=== PATIENT | female | born 1965 | race Caucasian/White ===

== ENCOUNTER → 2016-04-30 | Day surgery (SDC) | payer BC ==
[~2016-04-30] MED LIST: ALPRAZOLAM PO; ASPERDRINK81 MG PO; BENAZEPRIL HCL10 MG PO; BUMETANIDE2 M1 PO; CELEBREX PO; CLONIDINE HCL0.1 MG PO; IBUPROFEN800 MG PO; JANUMET XR 50-1 EAC1 PO; KOMBIGLYZE XR1 EAC1 PO; LOW DOSE ASPIRI81 M1 PO; METFORMIN PO; NEURONTIN100 MG PO; OXAYDO7.5 MG PO; OXECTA7.5 MG PO; PERCOCET 5-3251 TAB PO; PERCOCET 7.5-31 EACH PO; PHENERGAN PO; PREMARIN1.25 MG PO; PRISTIQ50 MG PO; ROSUVASTATIN CA20 MG PO; SILVADENE TOP; VASCEPA1 GM PO; VICODIN 5/500 T1 TAB PO; VIVELLE-DO1 PATCH.B1 TD; WELLBUTRIN PO; ZANTAC150 M1 PO; ZOCOR PO; [UNRECOGNIZED DRUG - OTHER] PO
--- NOTE | ~2016-04-30 | OR ---
Unit #: [id number] #: [id number] Patient: DARCIE GALLO [id number] [address] [address] [id number] O MR#: [id number] NAME: DARCIE GALLO ROOM: Date of Procedure: 04/30/2016 Admission Date: 04/30/2016 Surgeon: Morgan Sosa M.D. : 1965 Attending Physician: Morgan Sosa M.D. Referring Physician: Morgan Sosa M.D. Primary Care Physician: Jonnathan JolleyPColleenRRadha OPERATIVE REPORT PREOPERATIVE DIAGNOSES 1. Back pain. 2. Radiculopathy. 3. Spondylolisthesis. 4. Degenerative disk disease. POSTOPERATIVE DIAGNOSES 1. Back pain. 2. Radiculopathy. 3. Spondylolisthesis. 4. Degenerative disk disease. PROCEDURE PERFORMED Lumbar epidural steroid injection with intravenous sedation and fluoroscopic guidance for needle localization. INDICATIONS FOR PROCEDURE The patient is 51-year-old female with return of back and right lower extremity pain due to nonsurgical degenerative disk disease and spondylolisthesis. She is treated medically with p.r.n. epidural steroid injections. Last injection was done 8 months ago. The patient did well for 7 months. Over the last month, she had return of the same symptoms. Based on history, pathology, and symptomatology, plan is to repeat an epidural steroid injection today. DESCRIPTION OF PROCEDURE The patient was placed in a seated position. Standard monitors were applied. 2 mg of Versed were given for sedation and anxiolysis, which were adequate. Vital signs remained stable. Sterile prep and drape then of the lumbar area was performed. The skin at the L4-L5 level was localized with 1% lidocaine. An 18-gauge [employer] needle was then advanced via loss of resistance technique and fluoroscopic guidance in toward the epidural space. After confirming proper positioning with fluoroscopy and radiographic contrast, 80 mg Depo-Medrol and 4 mL of 0.125% bupivacaine were deposited. The patient tolerated the procedure well and was discharged to the recovery room in stable condition. Dictated by... Morgan Sosa M.D. Unit #: [id number] #: [id number] Patient: DARCIE GALLO LHP/modl TD: 04/30/2016 23:18 JOB #: [id number] OPERATIVE REPORT Page 1 of 1 X Morgan Sosa MD X PROCEDURE OPERATIVE NOTE
== END | disposition home or self-care (01) ==
LOC: CCSC 07:10
DX: M51.16 Intervertebral disc disorders with radiculopathy, lumbar region (principal); M43.16 Spondylolisthesis, lumbar region; I10 Essential (primary) hypertension; F41.9 Anxiety disorder, unspecified
CPT/HCPCS: J1040; J2250

== ENCOUNTER → 2016-05-07 | Day surgery (SDC) | payer BC ==
--- NOTE | ~2016-05-07 | OR ---
Unit #: [id number] #: [id number] Patient: DARCIE GALLO [id number] [address] [place], [place] [address] [id number] O MR#: [id number] NAME: DARCIE GALLO. ROOM: Date of Procedure: 05/07/2016 Admission Date: 05/07/2016 Surgeon: Morgan Sosa M.D. : 1965 Attending Physician: Morgan Sosa M.D. Primary Care Physician: Luana Quezada A.P.R.N. OPERATIVE REPORT PREOPERATIVE DIAGNOSES 1. Back pain. 2. Radiculopathy. 3. Spondylolisthesis. 4. Degenerative disk disease. POSTOPERATIVE DIAGNOSES 1. Back pain. 2. Radiculopathy. 3. Spondylolisthesis. 4. Degenerative disk disease. PROCEDURE PERFORMED Lumbar epidural steroid injection with intravenous sedation and fluoroscopic guidance for needle localization. INDICATIONS FOR PROCEDURE The patient is a 51-year-old female, who had return of back and right lower extremity pain due to previously mentioned diagnosis. She has done very well with medical management in the past with epidural steroids. Last injections were completed about a year and a half ago. She did well for over a year. In the past, she feels she had done even better with a series of injections. There is a history of repeat injection was performed recently, which resulted in significant improvement in her back and leg pain I get back above she has previously been health in chief improving with the plan is to repeat a second injection today. The patient will then assess how she is doing and continue with the third injection. We will continue with other conservative management. DESCRIPTION OF PROCEDURE The patient was placed in a seated position. Standard monitors were applied. 2 mg of Versed were given for sedation and anxiolysis, which were adequate. Vital signs remained stable. Sterile prep and drape then of the lumbar area was performed. The skin at the L4-L5 level was localized with 1% lidocaine. An 18-gauge [employer] needle was then advanced via loss of resistance technique and fluoroscopic guidance in toward the epidural space. The patient did not complain of pain or paresthesia during needle advancement. After confirming proper positioning with fluoroscopy and radiographic contrast, 80 mg of Depo-Medrol and 4 mL of 0.125% bupivacaine were deposited. The patient tolerated the procedure otherwise well and was discharged to the recovery room in stable condition. Unit #: [id number] #: [id number] Patient: CLEODARCIE D Dictated by... Apollo Galvez/lluvia TD: 05/07/2016 23:59 JOB #: [id number] OPERATIVE REPORT Page 1 of 1 X Morgan Sosa MD X PROCEDURE OPERATIVE NOTE
== END | disposition home or self-care (01) ==
LOC: CCSC 07:10
DX: M51.16 Intervertebral disc disorders with radiculopathy, lumbar region (principal); M43.16 Spondylolisthesis, lumbar region
CPT/HCPCS: J1040; J2250

== ENCOUNTER → 2016-05-21 | Day surgery (SDC) | payer BC ==
--- NOTE | ~2016-05-21 | OR ---
Unit #: [id number] #: [id number] Patient: DARCIE GALLO [id number] [address] [place], [place] [address] [id number] O MR#: [id number] NAME: DARCIE GALLO ROOM: Date of Procedure: 05/21/2016 Admission Date: 05/21/2016 Surgeon: Morgan Sosa M.D. : 1965 Attending Physician: Morgan Sosa M.D. Primary Care Physician: Luana Quezada A.P.R.N. OPERATIVE REPORT PREOPERATIVE DIAGNOSES 1. Spondylolisthesis. 2. Degenerative lumbar disk disease. 3. Back pain. 4. Radiculopathy. POSTOPERATIVE DIAGNOSES 1. Spondylolisthesis. 2. Degenerative lumbar disk disease. 3. Back pain. 4. Radiculopathy. PROCEDURE PERFORMED Lumbar epidural steroid injection with intravenous sedation under fluoroscopic guidance for needle localization. INDICATIONS FOR PROCEDURE The patient is a 51-year-old female with return of back and right lower extremity pain associated with previous known diagnosis. It appears that she had done well for about a year and a half following epidural steroids. She had symptoms that has flared up and would not settle. She has to deal with new issues with a torn rotator cuff. Decision was made to repeat the epidurals based on prior excellent response, which had been done over the last several weeks. They have given additive improvement. She is not back down to her prior level at this point and she will be going through extensive rehab, so plan is for repeat and a final injection today. DESCRIPTION OF PROCEDURE The patient was placed in a seated position. Standard monitors were applied. Then, 2 mg of Versed were given for sedation and anxiolysis, which were adequate. Vital signs remained stable. Sterile prep and drape then of the lumbar area was performed. The skin at the L4-L5 level was localized with 1% lidocaine. An 18-gauge Flywheel needle was then advanced via loss of resistance technique and fluoroscopic guidance in toward the epidural space. After confirming proper positioning with fluoroscopy and radiographic contrast, 80 mg Depo-Medrol and 4 mL of 0.125% bupivacaine were deposited. The patient tolerated the procedure otherwise well and was discharged to the recovery room in stable condition. Dictated by... Morgan Sosa M.D. Unit #: [id number] #: [id number] Patient: CLEODARCIE/lluvia TD: 05/21/2016 09:12 JOB #: [id number] OPERATIVE REPORT Page 1 of 1 X Morgan Sosa MD X PROCEDURE OPERATIVE NOTE
== END | disposition home or self-care (01) ==
LOC: CCSC 07:28
DX: M51.16 Intervertebral disc disorders with radiculopathy, lumbar region (principal); M43.16 Spondylolisthesis, lumbar region
CPT/HCPCS: J1040; J2250

== ENCOUNTER 2016-09-12 20:28 | Emergency (ER) | payer BC ==
[~2016-09-12] VITALS: Ht 175.3 cm; Wt 86.4 kg
--- NOTE | ~2016-09-12 | CR211 ---
[facility] A Service of [facility] RADIOLOGY TEXT RESULTS PATIENT: DARCIE GALLO LOCATION: SED : 63 UNIT #: [id number] AGE: [address]: Rosie Parker SEX: F ORDER DR: [id number] [address] [address] [id number] E MR#: [id number] Acc #: [id number] NAME: DARCIE GALLO : 1965 SEX: F STUDY DATE/TIME: 09/12/2016 21:20 UNIT: SED ROOM: STUDY DESCRIPTION: CR Ribs Uni 2 View W PA Ch Rt Attending Physician: Rosie Parker Pa-C Ordering Physician: Rosie Parker Pa-C Primary Care Physician: Jonnathan JolleyPColleenRRadha MEDICAL IMAGING REPORT This report is preliminary unless electronic signature is present. EXAM Right ribs 5 views HISTORY Right rib pain after fall today and rib injury. FINDINGS 5 views of the right ribs demonstrate fractures of the lateral fifth and sixth ribs. The fifth rib fracture is displaced up to approximately 5 mm. There may also be a nondisplaced fracture of the 7th rib. No pneumothorax. No focal infiltrate or effusion. Dictated by... Bobby House M.D. THIS IS AN ELECTRONICALLY VERIFIED REPORT Bobby House M.D. at 09/13/2016 11:20 PM DFL/cristinar TD: 09/12/2016 23:40 JOB #: [id number] MEDICAL IMAGING REPORT Page 1 of 1
== END 2016-09-12 22:15 | disposition home or self-care (01) ==
LOC: SED 20:28
DX: S22.41XA Multiple fractures of ribs, right side, initial encounter for closed fracture (principal); I10 Essential (primary) hypertension; E11.9 Type 2 diabetes mellitus without complications; F17.200 Nicotine dependence, unspecified, uncomplicated; Z79.899 Other long term (current) drug therapy; W18.39XA Other fall on same level, initial encounter; Y92.098 Other place in other non-institutional residence as the place of occurrence of the external cause
CPT/HCPCS: 71101; 99283